=== PATIENT | male | born 1925 | race Caucasian/White ===

== ENCOUNTER 2017-01-14 17:32 | Emergency (ER) | payer BC ==
[2017-01-14 18:20] VITALS: BP 155/69
--- NOTE | 2017-01-14 19:42 | ER Document Report ---
ED Medical Screen (RME) - General Chief Complaint: Headache Stated Complaint: HEADACHE,ALTERED MENTAL STATUS Information source: Patient, Relative TRAVEL OUTSIDE OF THE [place] IN LAST 30 DAYS: No - HPI Onset: Other - last pm Onset/Duration: Gradual, Waxing and waning Quality of pain: Dull Associated Symptoms: None Exacerbated by: Denies Relieved by: Denies Similar symptoms previously: Yes - with viral illness Recently seen / treated by doctor: Yes - TODAY, DR. SHERWOOD - Related Data Smoking: Non-smoker Frequency of alcohol use: Rare Drug Abuse: None Allergies/Adverse Reactions: Penicillins Allergy (Severe, Verified 01/14/17 18:08) Hives Past Medical History - General Information source: Patient, Relative - Social History Cigarette use (# per day): No Chew tobacco use (# tins/day): No Frequency of alcohol use: Rare Drug Abuse: None Lives with: Spouse/Significant other Family history: Reviewed & Not Pertinent - Past Medical History Cardiac Medical History: Reports: Hx Hypertension Denies: Hx Coronary Artery Disease, Hx Heart Attack Pulmonary Medical History: Denies: Hx Asthma, Hx Bronchitis, Hx COPD, Hx Pneumonia Neurological Medical History: Denies: Hx Cerebrovascular Accident, Hx Seizures Renal/ Medical History: Reports: Hx Benign Prostatic Hyperplasia. 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 - Immunizations Hx Diphtheria, Pertussis, Tetanus Vaccination: No Review of Systems - Review of Systems Constitutional: No symptoms reported EENT: No symptoms reported Cardiovascular: No symptoms reported Respiratory: No symptoms reported Gastrointestinal: No symptoms reported Musculoskeletal: No symptoms reported Skin: No symptoms reported Neurological/Psychological: Confusion, Hallucinations Physical Exam - Vital signs Vitals: Temp Pulse Resp BP Pulse Ox 98.2 F 89 16 155/69 H 98 01/14/17 18:14 01/14/17 18:14 01/14/17 18:14 01/14/17 18:14 01/14/17 18:14 Interpretation: Hypertensive Course - Vital Signs Vital signs: Temp Pulse Resp BP Pulse Ox 98.2 F 89 16 155/69 H 98 01/14/17 18:14 01/14/17 18:14 01/14/17 18:14 01/14/17 18:14 01/14/17 18:14
[2017-01-14 20:24] LABS: ABSOLUTE BASOPHILS # (AUTO) 0.1 10^3/uL (0.0-0.2); ABSOLUTE EOSINOPHILS # (AUTO) 0.3 10^3/uL (0.0-0.6); ABSOLUTE MONOCYTES (AUTO) 0.7 10^3/uL (0.1-1.4); ABSOLUTE NEUT (AUTO) 5.7 10^3/uL (1.7-8.2); BASOPHILS % (AUTO) 0.9 % (0-2); HEMATOCRIT 41.1 % (37.9-51.0); HGB HCT DIFFERENCE 0.9; LYMPHOCYTES % (AUTO) 22.6 % (13-45); MEAN CORPUSCULAR HEMOGLOBIN 32.9 pg (27.0-33.4); MEAN CORPUSCULAR HGB CONC 34.1 g/dL (32.0-36.0); MEAN CORPUSCULAR VOLUME 96 fl (80-97); MONOCYTES % (AUTO) 8.5 % (3-13); RED BLOOD COUNT 4.26 10^6/uL (4.35-5.55); RED CELL DISTRIBUTION WIDTH 14.7 % (11.5-14.0); WHITE BLOOD COUNT 8.8 10^3/uL (4.0-10.5)
[2017-01-14 20:29] LABS: APPEARANCE,URINE CLEAR; BILIRUBIN,URINE NEGATIVE (NEGATIVE); GLUCOSE, URINE NEGATIVE (NEGATIVE); KETONES,URINE NEGATIVE (NEGATIVE); LEUKOCYTE ESTERASE,URINE NEGATIVE (NEGATIVE); NITRITE,URINE NEGATIVE (NEGATIVE); PROTEIN,URINE NEGATIVE (NEGATIVE); URINE SPECIFIC GRAVITY 1.021; UROBILINOGEN,URINE NEGATIVE mg/dL (<2.0)
[2017-01-14 20:33] LABS: ALANINE AMINOTRANSFERASE 22 U/L (21-72); ALBUMIN 4.1 g/dL (3.5-5.0); ALKALINE PHOSPHATASE 49 U/L (38-126); ANION GAP 13 (5-19); ASPARTATE AMINO TRANSFERASE 28 U/L (17-59); BILIRUBIN,DIRECT 0.1 mg/dL (0.0-0.4); BILIRUBIN,TOTAL 1.3 mg/dL (0.2-1.3); BLOOD UREA NITROGEN 32 mg/dL (7-20); CALCIUM 9.8 mg/dL (8.4-10.2); CARBON DIOXIDE 25 mmol/L (22-30); CHLORIDE 109 mmol/L (98-107); CREATININE RESULT 0.76 mg/dL (0.52-1.25); GLUCOSE 95 mg/dL (75-110); POTASSIUM 5.1 mmol/L (3.6-5.0); SODIUM 146.8 mmol/L (137-145); TOTAL PROTEIN 7.4 g/dL (6.3-8.2)
[2017-01-14] MEDS ORDERED: NORMAL SALINE 1000 ML 1,000 ML IV ONE (22:03)
--- NOTE | 2017-01-14 22:15 | ER Document Report ---
ED General - General Chief Complaint: Headache Stated Complaint: HEADACHE,ALTERED MENTAL STATUS Mode of Arrival: Ambulatory Information source: Patient, Relative Notes: This is a 89-year-old male with a history of hypertension who presents to the emergency department at the request of his primary care physician Dr. Sheridan. Patient states that he feels just fine at the moment. However history from the family is such that patient has been becoming gradually more forgetful for the past several months. Last night he had an episode of disorientation at home. Family states that he seemed confused and patient states that he was seen "numbers" everywhere. Patient was able to sleep last night but upon awakening this morning he still seems somewhat confused and patient states that he was still seeing numbers "everywhere... On the gee and on the floors." Family states that patient was so confused that he had difficulty dressing himself this morning which is a significant change from his baseline mental status. For this reason they went to see his primary care physician who initially did not find any abnormality on exam. Pt's mental status had returned to baseline once he got out of the house, according to the family. However patient went home and took a nap this afternoon and upon awakening seemed confused again to the family, so they called the primary care physician back and they were instructed to proceed to the emergency department to have a CT scan done. At this time patient is awake and alert and oriented. He has no complaints. He is very pleasant and conversant. He denies any recent fevers chills or systemic symptoms. He has been tolerating food without difficulty although has had a greater than 30 pound weight loss over the past several months secondary to decreased appetite. TRAVEL OUTSIDE OF THE [place] IN LAST 30 DAYS: No - Related Data Allergies/Adverse Reactions: Penicillins Allergy (Severe, Verified 01/14/17 18:08) Hives Past Medical History - General Information source: Patient, Relative - Social History Smoking Status: Never Smoker Cigarette use (# per day): No Chew tobacco use (# tins/day): No Frequency of alcohol use: Rare Drug Abuse: None Lives with: Spouse/Significant other Family History: Reviewed & Not Pertinent Patient has suicidal ideation: No - Past Medical History Cardiac Medical History: Reports: Hx Hypertension Denies: Hx Coronary Artery Disease, Hx Heart Attack Pulmonary Medical History: Denies: Hx Asthma, Hx Bronchitis, Hx COPD, Hx Pneumonia Neurological Medical History: Denies: Hx Cerebrovascular Accident, Hx Seizures Renal/ Medical History: Reports: Hx Benign Prostatic Hyperplasia. 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 Denies recent illness. EENT: Denies eye, ear, throat, or mouth pain or symptoms. Denies nasal or sinus congestion. CARDIOVASCULAR: Denies chest pain. RESPIRATORY: Denies cough, cold, or chest congestion. Denies shortness of breath, difficulty breathing, or wheezing. GASTROINTESTINAL: Denies abdominal pain. Denies nausea, vomiting, or diarrhea. Denies constipation. Last BM: GENITOURINARY: Denies difficulty urinating, painful urination, burning, frequency, or blood in urine. MUSCULOSKELETAL: Denies neck or back pain or joint pain or swelling. SKIN: Denies rash or skin lesions. HEMATOLOGIC : Denies easy bruising or bleeding. LYMPHATIC: Denies swollen, enlarged glands. NEUROLOGICAL: As per history of present illness PSYCHIATRIC: Denies anxiety or stress or depression. ALL OTHER SYSTEMS REVIEWED AND NEGATIVE. Physical Exam - Vital signs Vitals: Temp Pulse Resp BP Pulse Ox 98.2 F 89 16 155/69 H 98 01/14/17 18:14 01/14/17 18:14 01/14/17 18:14 01/14/17 18:14 01/14/17 18:14 - Notes Notes: PHYSICAL EXAMINATION: GENERAL: Well-appearing elderly male, pleasant and conversant,, well-nourished and in no acute distress. HEAD: Atraumatic, normocephalic. EYES: Pupils equal round and reactive to light, extraocular movements intact, sclera anicteric, conjunctiva are normal. ENT: nares patent, oropharynx clear without exudates. Moist mucous membranes. NECK: Normal range of motion, supple without lymphadenopathy LUNGS: Breath sounds clear to auscultation bilaterally and equal. No wheezes rales or rhonchi. HEART: Regular rate and rhythm without murmurs ABDOMEN: Soft, nontender, normoactive bowel sounds. No guarding, no rebound. No masses appreciated. EXTREMITIES: Normal range of motion, no pitting or edema. No cyanosis. NEUROLOGICAL: Alert and oriented 4, Cranial nerves 2 through 12 intact bilaterally. Normal speech, normal gait. Normal sensory, motor, and reflex exams. PSYCH: Normal mood, normal affect. SKIN: Warm, Dry, normal turgor, no rashes or lesions noted. Course - Re-evaluation Re-evalutation: 01/15/17 01:09 Long discussion with patient and family. Tonight his ER evaluation is benign. He is alert and oriented and appropriate. His neuro exam is intact. His labs and CT are unremarkable. He does have mild dehydration and was given 1 L of normal saline IV. At this point he is appropriate for discharge and will continue his workup on an outpatient basis with primary care physician. Patient is very comfortable with this plan as is his family, all questions were answered. - Vital Signs Vital signs: Temp Pulse Resp BP Pulse Ox 98.2 F 89 16 155/69 H 98 01/14/17 18:14 01/14/17 18:14 01/14/17 18:14 01/14/17 18:14 01/14/17 18:14 - Laboratory Result Diagrams: 01/14/17 20:05 01/14/17 20:05 Laboratory results interpreted by me: 01/14/17 01/14/17 01/14/17 20:05 20:05 20:05 RBC 4.26 L RDW 14.7 H Plt Count 132 L Sodium 146.8 H Potassium 5.1 H Chloride 109 H BUN 32 H Urine Ascorbic Acid 40 H Discharge - Discharge Clinical Impression: Transient confusion, Dehydration Condition: Stable Disposition: HOME, SELF-CARE Additional Instructions: As discussed, your exam and bloodwork, urinalysis and head CT do not show significant abnormalities (other than mild dehydration) to explain your transient confusion. Rest and drink plenty of fluids. Please follow up with your primary physician this week for further evaluation. Return to the ER for fever, severe headache, numbness or weakness on one side of the body, chest pain, or any worsening symptoms or concerns. Referrals: FARSHAD SHERWOOD MD [Primary Care Provider] - Follow up as needed
--- NOTE | 2017-01-15 13:15 | EKG REPORT ---
SEVERITY:- ABNORMAL ECG - SINUS TACHYCARDIA MULTIFORM VENTRICULAR PREMATURE COMPLEXES LEFT ANTERIOR FASCICULAR BLOCK LVH WITH SECONDARY REPOLARIZATION ABNORMALITY PROLONGED QT INTERVAL : Confirmed by: Niesha Patel MD 15-Jan-2017 13:13:36
== END 2017-01-15 01:32 | disposition home or self-care (01) ==
LOC: ER 17:32
DX: R41.0 Disorientation, unspecified (principal); E86.0 Dehydration; R51 Headache; R41.82 Altered mental status, unspecified; I10 Essential (primary) hypertension
CPT/HCPCS: 93005; 99284; 36415; 85025; 80053; 81001; 70450; 93010; J7030